=== PATIENT | female | born 2000 | race Caucasian/White ===

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

== ENCOUNTER 2021-08-08 11:18 | Emergency (ER) | payer MEDICAID ==
[~2021-08-08] VITALS: Ht 160 cm; Wt 49.9 kg
[2021-08-08 11:24] VITALS: BP_SYST 119
[2021-08-08 11:46] LABS: BILIRUBIN,URINE NEGATIVE (NEGATIVE); BLOOD, URINE 3+ (NEGATIVE); COLOR,URINE YELLOW (YELLOW); GLUCOSE,URINE NEGATIVE (NEGATIVE); KETONES,URINE NEGATIVE (NEGATIVE); NITRITE, URINE NEGATIVE (NEGATIVE); PH,URINE 7.5 (5.0-8.0); PROTEIN URINE NEGATIVE (NEGATIVE); UROBILINOGEN,URINE 0.2 (0.2-1.0)
[2021-08-08 11:58] LABS: CLARITY/URINE HAZY (CLEAR); LEUKOCYTE ESTERASE ,URINE 2+ (NEGATIVE)
[2021-08-08 11:59] LABS: BACTERIA,URINE FEW /HPF (None Seen); RBC,URINE NONE SEEN /HPF (0-3)
[2021-08-08 12:00] LABS: MUCUS,URINE None Seen /LPF (None Seen)
[2021-08-08] MEDS ORDERED: TRAM50TA PO (12:19)
[2021-08-08] MEDS ORDERED: NITR-85 PO (12:19)
[2021-08-08 12:28] VITALS: BP_SYST 113
== END 2021-08-08 12:28 | disposition home or self-care (01) ==
LOC: SED 11:18
DX: N39.0 Urinary tract infection, site not specified (principal)
CPT/HCPCS: 81000; 81025; 87086; 99283

== ENCOUNTER 2022-01-13 18:11 | Emergency (ER) | payer OTHER, MEDICAID ==
[~2022-01-13] VITALS: Ht 160 cm; Wt 54.0 kg
[~2022-01-13 18:11] MED LIST: NITR-85 PO; TRAM50TA PO
[2022-01-13 18:29] VITALS: BP_SYST 109
[2022-01-13] MEDS ORDERED: IBUPROFEN 600 MG TABLET PO ONE (21:45)
[2022-01-13] MEDS ORDERED: NAPR-1172 PO (21:49)
[2022-01-13 21:57] VITALS: BP_SYST 109
== END 2022-01-13 21:57 | disposition home or self-care (01) ==
LOC: SED 18:11
DX: S63.91XA Sprain of unspecified part of right wrist and hand, initial encounter (principal); S80.11XA Contusion of right lower leg, initial encounter; Z79.899 Other long term (current) drug therapy; V43.52XA Car driver injured in collision with other type car in traffic accident, initial encounter; Y93.89 Activity, other specified; Y92.89 Other specified places as the place of occurrence of the external cause; Y99.8 Other external cause status
CPT/HCPCS: 73590-TC; 99284

== ENCOUNTER 2022-09-26 17:16 | Emergency (ER) | payer MEDICAID ==
[~2022-09-26] VITALS: Ht 147.3 cm; Wt 55.8 kg
[~2022-09-26 17:16] MED LIST changes: +NAPR-1172 PO
--- NOTE | 2022-09-26 20:00 | NUR ---
PT CALLED FOR EVAL BUT NO RESPONSE
--- NOTE | 2022-09-26 20:30 | NUR ---
PT CALLED FOR EVALUATION BUT NO RESPONSE. MD PEREZ INFORMED PT [facility]BS
== END 2022-09-26 20:30 | disposition left against medical advice (07) ==
LOC: SED 17:16
DX: R06.02 Shortness of breath (principal); Z53.21 Procedure and treatment not carried out due to patient leaving prior to being seen by health care provider
CPT/HCPCS: 99281

== ENCOUNTER 2023-09-15 03:41 | Emergency (ER) | payer MEDICAID ==
[~2023-09-15] VITALS: Ht 160 cm; Wt 62.6 kg
[2023-09-15 03:53] VITALS: BP_SYST 124; PULSE 81; RESP 18; TEMP 96.8; O2SAT 100
[2023-09-15] MEDS ORDERED: BEN50 PO (04:11)
[2023-09-15] MEDS ORDERED: DIPH28.33 TD (04:11)
[2023-09-15 04:16] VITALS: BP_SYST 120; PULSE 81; RESP 18; TEMP 96.8; O2SAT 100
== END 2023-09-15 04:16 | disposition home or self-care (01) ==
LOC: SED 03:41
DX: B01.9 Varicella without complication (principal); Z79.899 Other long term (current) drug therapy; Z79.2 Long term (current) use of antibiotics
CPT/HCPCS: 99283